=== PATIENT | male | born 1985 | race Caucasian/White ===

== ENCOUNTER → 2021-01-05 | Outpatient (CLI) | payer OTHER ==
--- NOTE | 2021-01-05 16:12 | XR ---
EXAMINATION TYPE: XR Hip Complete LT DATE OF EXAM: 01/05/2021 COMPARISON: NONE HISTORY: Pain TECHNIQUE: 2 views submitted FINDINGS: There is no evidence of erosive change or acute fracture. Mild concentric narrowing of the hip joint. There is mild hypertrophic change of the acetabulum. Calcifications in the pelvis may be vascular. IMPRESSION: 1. Hypertrophic change of the acetabulum could be associated with femoral acetabular impingement abdirahman elate clinically.
== END | disposition home or self-care (01) ==
LOC: RADXRMAIN 15:30
PROVIDERS: ATTEND Internal Medicine
DX: M89.8X5 Other specified disorders of bone, thigh (principal)
CPT/HCPCS: 73502

== ENCOUNTER 2023-06-16 10:40 | Emergency (ER) | payer OTHER ==
[2023-06-16 11:15] VITALS: RESP 18
--- NOTE | 2023-06-16 11:16 | ED ---
Fall HPI - General Chief Complaint: Fall Stated Complaint: Fall Time Seen by Provider: 06/16/23 10:42 Source: patient, RN notes reviewed, Caregiver Mode of arrival: ambulatory Limitations: physical limitation - History of Present Illness Initial Comments: This is a 38-year-old male who presents to the emergency department for a fall. Patient lives in a long-term and has Down syndrome, and history is somewhat limited. Staff at the home heard him fall, and he then hollered for help. He was unable to put pressure on his left foot afterwards and has been complaining of pain to that area since. When asked if anything else hurts, he just says "yes", and staff says he will just agree with whatever you say. However, the left foot/ankle was the only area he was noted to have difficulty with. He is not on any blood thinners. Given that they heard the fall and he screamed immediately afterwards, it was suspected that there was not any loss of co nsciousness. He also did not land in a manor where they were concerned that he may have hit his head. He did have Excedrin before arrival. MD Complaint: fall - Related Data Allergies Allergy/AdvReac Type Severity Reaction Status Date / Time dextromethorphan Allergy Rash/Hives Verified 06/16/23 11:13 [From Dimetapp Cold-Congestion] diphenhydramine Allergy Rash/Hives Verified 06/16/23 11:13 [From Dimetapp Cold-Congestion] guaifenesin Allergy Rash/Hives Verified 06/16/23 11:13 [From Dimetapp Cold-Congestion] phenylephrine Allergy Rash/Hives Verified 06/16/23 11:13 [From Dimetapp Cold-Congestion] pseudoephedrine Allergy Rash/Hives Verified 06/16/23 11:13 [From Dimetapp Cold-Congestion] Review of Systems ROS Statement: Those systems with pertinent positive or pertinent negative responses have been documented in the HPI. ROS Other: All systems not noted in ROS Statement are negative. Past Medical History Past Medical History: Unable to Obtain Past Surgical History: Unable to Obtain Smoking Status: Never smoker Past Alcohol Use History: None Reported Past Drug Use History: None Reported General Exam Limitations: physical limitation General appearance: alert, in no apparent distress Head exam: Present: atraumatic, normocephalic, normal inspection Eye exam: Present: normal appearance, PERRL, EOMI. Absent: scleral icterus, conjunctival injection, periorbital swelling Respiratory exam: Present: normal lung sounds bilaterally. Absent: respiratory distress, wheezes, rales, rhonchi, stridor Cardiovascular Exam: Present: regular rate, normal rhythm, normal heart sounds. Absent: systolic murmur, diastolic murmur, rubs, gallop, clicks Extremities exam: Present: other (Tenderness to palpation over the medial and lateral aspect of the left ankle with mild swelling. ROM limited by pain. 2+ DP and PT pulses.) Neurological exam: Present: alert, oriented X3, CN II-XII intact Psychiatric exam: Present: normal affect, normal mood Course Vital Signs 06/16/23 06/16/23 10:45 11:50 Temperature 98.1 F 98.0 F Pulse Rate 75 78 Respiratory 18 18 Rate Blood Pressure 138/82 134/78 O2 Sat by Pulse 96 100 Oximetry Medical Decision Making - Medical Decision Making This is a 38-year-old male who presents to the emergency department for left ankle pain. Was pt. sent in by a medical professional or institution? @ -No Did you speak to anyone other than the patient for history? @ -His caregivers provided the majority of the history. Did you review nursing and triage notes? @ -Yes, and I agree, it is accurate with regards to the patient's symptoms. Were old charts reviewed? @ -No Differential Diagnosis? @ -Differential Musculoskeletal: Muscular strain, contusion, ligament sprain, fracture, arthritis, septic arthritis, bursitis, cellulitis, muscle spasm, nerve compression, DVT, arterial occlusion, herpes zoster, electrolyte abnormality, tumor.... This is not meant to be in all inclusive list EKG interpreted by me (3pts min.)? @ -Not obtained X-rays interpreted by me (1pt min.)? @ -X-ray of the left foot and ankle obtained. My interpretation identifies no acute fractures. CT interpreted by me (1pt min.)? @ -Not obtained U/S interpreted by me (1pt. min.)? @ -Not obtained What testing was considered but not performed? (CT, X-rays, U/S, labs)? Why? @ -None What meds were considered but not given? Why? @ -None Did you discuss the management of the patient with other professionals? @ -No Did you reconcile home meds? @ -No Was smoking cessation discussed for >3mins.? @ -No Was critical care preformed (if so, how long)? @ -No Were there social determinants of health that impacted care today? How? (Homelessness, low income, unemployed, alcoholism, drug addiction, transpo rtation, low edu. Level, literacy, decrease access to med. care, [facility], rehab)? @ -No Was there de-escalation of care discussed even if they declined? (Discuss DNR or withdrawal of care, Hospice)? @ -No What co-morbidities impacted this encounter? (DM, HTN, Smoking, COPD, CAD, Cancer, CVA, Hep., AIDS, mental health diagnosis, sleep apnea, morbid obesity)? @ -Down syndrome Was patient admitted / discharged? @ -Discharged. X-ray of the left foot and ankle obtained revealing soft tissue swelling and no acute fractures. Advised that this is likely an ankle sprain. Ibuprofen administered for pain relief. He was given a Velcro stirrup splint and discharged home in stable condition. Discussed with the patient and his caregivers alternating with ibuprofen and Tylenol as needed for pain relief and applying ice for 15-20 minutes every 2-3 hours. Undiagnosed new problem with uncertain prognosis? @ -None Drug Therapy requiring intensive monitoring for toxicity (Heparin, Nitro, Insulin, Cardizem)? @ -None Were any procedures done? @ -None Diagnosis/symptom? @ -Fall, left ankle sprain Acute, or Chronic, or Acute on Chronic? @ -Acute Uncomplicated (without systemic symptoms) or Complicated (systemic symptoms)? @ -Uncomplicated Side effects of treatment? @ -None Exacerbation, Progression, or Severe Exacerbation] @ -Not applicable Poses a threat to life or bodily function? @ -This may limit his ability to ambulate for the mean time. Return precautions reviewed in depth, the patient is instructed to return to the emergency department with any new, worsening, or concerning symptoms. Patient verbalized understanding. This case was discussed in detail with the attending ED physician, Dr. Dash. Presentation, findings, and treatment plan discussed in detail as well. - Radiology Data Radiology results: report reviewed, image reviewed Disposition Clinical Impression: Fall, Left ankle sprain Disposition: HOME SELF-CARE Instructions (If sedation given, give patient instructions): Ankle Sprain (ED), Ankle Stirrup Splint (ED) Additional Instructions: Return to the emergency department with any new, worsening, or concerning symptoms. He can use the Velcro stirrup splint as needed. Alternate with ibuprofen and Tylenol as needed for pain relief. Apply ice for 15-20 minutes e very 2-3 hours for the first 2-3 days, followed by heat thereafterwards. Follow up with his primary care provider in 1-2 days. Is patient prescribed a controlled substance at d/c from ED?: No Referrals: Radha Diaz MD [STAFF PHYSICIAN] - 1-2 days Time of Disposition: 11:39
--- NOTE | 2023-06-16 11:32 | XR ---
EXAMINATION TYPE: XR ankle complete LT, XR foot complete LT DATE OF EXAM: 06/16/2023 11:21 AM CLINICAL INDICATION:Male, 38 years old with history of Injury; COMPARISON: None TECHNIQUE: XR ankle complete LT, XR foot complete LT; ankle is imaged in frontal, lateral and obliqu e projections. FINDINGS: There is no evidence of acute osseous pathology. The joint spaces are well-preserved without evidenc e of subluxation or dislocation. Kager's fat pad is intact. Mild soft tissue swelling around the ankl e. No radiopaque foreign bodies are identified. IMPRESSION: 1. No evidence of acute fracture. 2. Subcutaneous swelling around the ankle likely secondary to underlying soft tissue injury.
[2023-06-16] MEDS ORDERED: IBUPROFEN 800 MG TAB PO STA (11:38)
[2023-06-16 12:13] VITALS: BP 134/78; PULSE 78; TEMP 98
== END 2023-06-16 11:50 | disposition home or self-care (01) ==
LOC: EC 10:40
DX: S93.402A Sprain of unspecified ligament of left ankle, initial encounter (principal); Z88.8 Allergy status to other drugs, medicaments and biological substances; W01.0XXA Fall on same level from slipping, tripping and stumbling without subsequent striking against object, initial encounter
CPT/HCPCS: 73610; 73630; 99283; L4350

== ENCOUNTER 2024-11-25 09:17 | Emergency (ER) | payer OTHER ==
[2024-11-25] MEDS: SODIUM CHLORIDE 0.9% 1,000 ML IV STA (09:54)
[2024-11-25] MEDS: PANTOPRAZOLE 40 MG/10 ML VIAL IVP STA (09:54)
[2024-11-25] MEDS: ONDANSETRON 4 MG/2 ML VIAL IVP STA (09:54)
[2024-11-25 09:55] LABS: Basophils # (A) 0.05 10*3/uL (0.00-0.10); Basophils % (A) 0.5 %; Eosinophils # (A) 0.08 10*3/uL (0.04-0.35); Eosinophils % (A) 0.8 %; HCT 38.3 % (39.6-50.0); HGB 12.9 g/dL (13.0-17.0); Lymphocytes # (A) 3.51 10*3/uL (0.90-5.00); Lymphocytes % (A) 35.5 %; MCH 31.0 pg (27.0-32.0); MCHC 33.7 g/dL (32.0-37.0); MCV 92.1 fL (80.0-97.0); Monocytes # (A) 0.79 10*3/uL (0.20-1.00); Monocytes % (A) 8.0 %; Neutrophils # (A) 5.44 10*3/uL (1.80-7.70); Neutrophils % (A) 54.9 %; Platelet Count 214 10*3/uL (140-440); RBC 4.16 10*6/uL (4.40-5.60); RDW 15.0 % (11.5-14.5); WBC 9.90 10*3/uL (4.50-10.00)
[2024-11-25] MEDS: KETOROLAC 15 MG/ML 1 ML VIAL IVP STA (09:55)
[2024-11-25 10:10] LABS: INR 1.0 (<1.2); Partial Thromboplastin Time 24.2 sec (22.0-30.0); Prothrombin Time 11.0 sec (10.0-12.5)
[2024-11-25 10:13] LABS: ALT 62 U/L (4-49); AST 39 U/L (17-59); African American GFR (CKD) >90 (>60 ml/min/1.73 sqM); Albumin 3.8 g/dL (3.5-5.0); Alkaline Phosphatase 78 U/L (38-126); Anion Gap 11 mmol/L; Blood Urea Nitrogen 15 mg/dL (9-20); Calcium 9.3 mg/dL (8.4-10.2); Carbon Dioxide 25 mmol/L (22-30); Chloride 105 mmol/L (98-107); Glucose 110 mg/dL (74-99); Magnesium 1.8 mg/dL (1.6-2.3); Non-African American GFR(CKD) >90 (>60 ml/min/1.73 sqM); Potassium 4.4 mmol/L (3.5-5.1); Sodium 141 mmol/L (137-145); Total Protein 6.8 g/dL (6.3-8.2)
--- NOTE | 2024-11-25 10:25 | XR ---
EXAMINATION TYPE: XR chest 2V DATE OF EXAM: 11/25/2024 10:20 AM COMPARISON: Chest radiographs from 04/23/2022. CLINICAL INDICATION: Male, 39 years old with history of Chest Pain; TECHNIQUE: XR chest 2V Frontal and lateral views of the chest. FINDINGS: Lungs/Pleura: Low lung volumes are present. There is no evidence of pleural effusion, focal consolida tion, or pneumothorax. Pulmonary vascularity: Pulmonary vascular congestion. Heart/mediastinum: Cardiomediastinal silhouette is enlarged. Musculoskeletal: No acute osseous pathology. IMPRESSION: Low lung volumes with a generalized hazy appearance which could represent atelectasis versus pulmonar y edema correlate with serum BNP. [facility], , 11/25/2024 10:23 AM
--- NOTE | 2024-11-25 11:46 | ED ---
General Adult HPI - General Chief complaint: Chest Pain Stated complaint: chest pain/abn labs Time Seen by Provider: 11/25/24 09:38 Source: patient, family, RN notes reviewed, old records reviewed Mode of arrival: ambulatory Limitations: no limitations - History of Present Illness Initial comments: 39-year-old male who presents emergency department complaining of some nonspecific chest pain. He has a history of atrial septal defect status p ostclosure, hypertension, hyperlipidemia, diabetes, intellectual disability. Presents with his aunt over concern for chest pain that he is intermittently complained of for the last few days. Seems to resolve with antiacids. PCP sent him here for evaluation for cardiac evaluation considering as an he had atrial septal defect closure surgery. Patient currently is resting comfortably. He has some reproducible chest pain currently that comes and goes. Presents for further evaluation at this time. - Related Data Home Medications Medication Instructions Recorded Confirmed Acetaminophen Tab [Tylenol Tab] 500 mg PO BID 11/25/24 11/25/24 Amoxicillin 500 mg PO DIRECTED 11/25/24 11/25/24 Atorvastatin [Lipitor] 20 mg PO HS 11/25/24 11/25/24 Insulin Glargine,Hum.rec.anlog 40 units SQ BID 11/25/24 11/25/24 [Lantus Solostar Pen] Levothyroxine Sodium [Synthroid] 88 mcg PO DAILY 11/25/24 11/25/24 Semaglutide [Ozempic] 1 mg SQ TH@2100 11/25/24 11/25/24 metFORMIN HCL [metFORMIN HCL ER] 750 mg PO BID 11/25/24 11/25/24 Allergies Allergy/AdvReac Type Severity Reaction Status Date / Time dextromethorphan Allergy Rash/Hives Verified 11/25/24 10:18 [From Dimetapp Cold-Congestion] diphenhydramine Allergy Rash/Hives Verified 11/25/24 10:18 [From Dimetapp Cold-Congestion] guaifenesin Allergy Rash/Hives Verified 11/25/24 10:18 [From Dimetapp Cold-Congestion] phenylephrine Allergy Rash/Hives Verified 11/25/24 10:18 [From Dimetapp Cold-Congestion] pseudoephedrine Allergy Rash/Hives Verified 11/25/24 10:18 [From Dimetapp Cold-Congestion] Review of Systems ROS Statement: Those systems with pertinent positive or pertinent negative responses have been documented in the HPI. Review of Systems: CONST: Denies fever EYES: Denies blurry vision ENT: Denies nasal congestion C/V: Endorses reproducible chest wall pain. RESP: Denies shortness of breath GI: Denies abdominal pain : Denies dysuria SKIN: Denies rash. MSK: Denies joint pain. NEURO: Denies headache ROS Other: All systems not noted in ROS Statement are negative. Past Medical History Past Medical History: Diabetes Mellitus, Hyperlipidemia, Hypertension, Thyroid Disorder Past Surgical History: Unable to Obtain Additional Past Surgical History / Comment(s): av septal closure Smoking Status: Never smoker Past Alcohol Use History: None Reported Past Drug Use History: None Reported General Exam - General Exam Comments Initial Comments: General: Appears in no acute distress. HEAD: Normal with no signs of head trauma. EYES: PERRLA, EOMI, conjunctiva normal, no discharge. ENT: Hearing grossly intact, normal oropharynx. RESPIRATORY: Clear breath sounds bilaterally. No wheezes, rales, or rhonchi. C/V: Regular rate and rhythm. S1 and S2 auscultated, no edema, peripheral pulses 2+ and intact throughout ABD: Abd is soft, nontender, nondistended EXT: No obvious deformity. Chest wall reproducible on tenderness on palpation over the superior aspect of the sternum near the sternoclavicular joints. No obvious deformity. SKIN: No rashes or lesions observed on exposed skin. NEURO: Alert and orient x 4. Limitations: no limitations Course Vital Signs 11/25/24 11/25/24 11/25/24 09:19 10:36 11:52 Temperature 98 F 97.9 F Pulse Rate 68 56 L 57 L Respiratory 16 18 16 Rate Blood Pressure 128/73 113/59 117/55 O2 Sat by Pulse 93 L 99 98 Oximetry Medical Decision Making - Medical Decision Making Was pt. sent in by a medical professional or institution (, PA, PREMIUM NOTE INTEREST CALCULATOR CLERK, urgent care, hospital, or jail...) When possible be specific @ -Sent by PCP over concern for multiple days of nonspecific chest wall pain. Did you speak to anyone other than the patient for history (EMS, parent, family, police, friend...)? What history was obtained from this source @ -Spoke with patient's aunt who is the primary historian for the patient. Did you review nursing and triage notes (agree or disagree)? Why? @ -I reviewed and agree with nursing and triage notes Were old charts reviewed (outside hosp., previous admission, EMS record, old EKG, old radiological studies, urgent care reports/EKG's, jail records)? Report findings @ -No prior EKG for review. Differential Diagnosis (chest pain, altered mental status, abdominal pain women, abdominal pain men, vaginal bleeding, weakness, fever, dyspnea, syncope, headache, dizziness, GI bleed, back pain, seizure, CVA, palpatations, mental health, musculoskeletal)? @ -Differential Chest Pain: Stable Angina, Unstable Angina, STEMI, NSTEMI Aortic Dissection, Pneumothorax, Musculoskeletal, Esophageal Spasm GERD, Cholecystitis, Pancreatitis, Zoster, this is not meant to be an all-inclusive list. EKG interpreted by me (3pts min.). @ -As above X-rays interpreted by me (1pt min.). @ -Chest x-ray reveals no obvious acute cardiopulmonary process. CT interpreted by me (1pt min.). @ -None done U/S interpreted by me (1pt. min.). @ -None done What testing was considered but not performed or refused? (CT, X-rays, U/S, labs)? Why? @ -None What meds were considered but not given or refused? Why? @ -None Did you discuss the management of the patient with other professionals (professionals i.e. , PA, PREMIUM NOTE INTEREST CALCULATOR CLERK, lab, RT, psych nurse, social work professor, vehicle maintenance supervisor, teacher, special technical operations officer, case packer)? Give summary @ -No Was smoking cessation discussed for >3mins.? @ -No Was critical care preformed (if so, how long)? @ -No Were there social determinants of health that impacted care today? How? (Ho melessness, low income, unemployed, alcoholism, drug addiction, transportation, low edu. Level, literacy, decrease access to med. care, [facility], rehab)? @ -No Was there de-escalation of care discussed even if they declined (Discuss DNR or withdrawal of care, Hospice)? DNR status @ -No What co-morbidities impacted this encounter? (DM, HTN, Smoking, COPD, CAD, Cancer, CVA, ARF, Chemo, Hep., AIDS, mental health diagnosis, sleep apnea, morbid obesity)? @ -None Was patient admitted / discharged? Hospital course, mention meds given and route, prescriptions, significant lab abnormalities, going to OR and other pertinent info. @ -Based on patient's presentation physical exam, presents emergency department complaining of nonspecific chest pain. Vitals are within acceptable limits. Seems to be chest wall pain however due to the patient's intellectual disability we will obtain general cardiac workup. He is resting comfortably. Vitals are within acceptable limits. Patient was in agreement this plan. Patient given an acids, as well as Toradol. Patient also given 1 L fluid bolus. EKG showed no signs of acute ischemia. Nonspecific ST segment and T wave abnormalities present. Laboratory studies are all within acceptable limits including undetectable troponin. Chest x-ray unremarkable. I discussed results with patient and his aunt. Patient will be discharged home at this time. He is resting comfortably with no acute complaints. Symptoms have been ongoing for multiple days and we did discuss that if it was cardiac related we would likely find something in workup. They were in agreement with this assessment and will follow-up with PCP. Heart score is low at 2. I instructed the patient to follow up with their PCP in the next 1-3 days. I explained that the patient should return to the emergency department if they experience any worsening symptoms. Strict return precautions were discussed with the patient. The patient expressed understanding of these instructions. I a nswered all questions that the patient had. The patient was discharged home in good condition with their prescriptions and follow up information. Undiagnosed new problem with uncertain prognosis? @ -No Drug Therapy requiring intensive monitoring for toxicity (Heparin, Nitro, Insulin, Cardizem)? @ -No Were any procedures done? @ -No Diagnosis/symptom? @ -Chest wall pain, GERD Acute, or Chronic, or Acute on Chronic? @ -Acute Uncomplicated (without systemic symptoms) or Complicated (systemic symptoms)? @ -Uncomplicated Side effects of treatment? @ -No Exacerbation, Progression, or Severe Exacerbation? @ -No Poses a threat to life or bodily function? How? (Chest pain, [place], [place], pneumonia, PE, COPD, DKA, ARF, appy, cholecystitis, CVA, Diverticulitis, Homicidal, Suicidal, threat to staff... and all critical care pts) @ -Unlikely at this time - Lab Data Result diagrams: 11/25/24 09:41 11/25/24 09:41 Lab Results 11/25/24 11/25/24 11/25/24 Range/Units 09:41 09:41 09:41 WBC 9.90 (4.50-10.00) 10*3/uL RBC 4.16 L (4.40-5.60) 10*6/uL Hgb 12.9 L (13.0-17.0) g/dL Hct 38.3 L (39.6-50.0) % MCV 92.1 (80.0-97.0) fL MCH 31.0 (27.0-32.0) pg MCHC 33.7 (32.0-37.0) g/dL Plt Count 214 (140-440) 10*3/uL MPV 10.1 (9.5-12.2) fL Immature Gran % (Auto) 0.3 % Neutrophils % 54.9 % Lymphocytes % 35.5 % Monocytes % 8.0 % Eosinophils % 0.8 % Basophils % 0.5 % Immature Gran # 0.03 (0.00-0.04) 10*3/uL Neutrophils # 5.44 (1.80-7.70) 10*3/uL Lymphocytes # 3.51 (0.90-5.00) 10*3/uL Monocytes # 0.79 (0.20-1.00) 10*3/uL Eosinophils # 0.08 (0.04-0.35) 10*3/uL Basophils # 0.05 (0.00-0.10) 10*3/uL PT 11.0 (10.0-12.5) sec INR 1.0 (<1.2) APTT 24.2 (22.0-30.0) sec Sodium 141 (137-145) mmol/L Potassium 4.4 (3.5-5.1) mmol/L Chloride 105 (98-107) mmol/L Carbon Dioxide 25 (22-30) mmol/L Anion Gap 11 mmol/L BUN 15 (9-20) mg/dL Creatinine 0.82 (0.66-1.25) mg/dL Est GFR (CKD-EPI)AfAm >90 (>60 ml/min/1.73 sqM) Est GFR (CKD-EPI)NonAf >90 (>60 ml/min/1.73 sqM) Glucose 110 H (74-99) mg/dL Calcium 9.3 (8.4-10.2) mg/dL Magnesium 1.8 (1.6-2.3) mg/dL Total Bilirubin 0.4 (0.2-1.3) mg/dL AST 39 (17-59) U/L ALT 62 H (4-49) U/L Alkaline Phosphatase 78 (38-126) U/L Troponin I (0.000-0.034) ng/mL Total Protein 6.8 (6.3-8.2) g/dL Albumin 3.8 (3.5-5.0) g/dL 11/25/24 Range/Units 09:41 WBC (4.50-10.00) 10*3/uL RBC (4.40-5.60) 10*6/uL Hgb (13.0-17.0) g/dL Hct (39.6-50.0) % MCV (80.0-97.0) fL MCH (27.0-32.0) pg MCHC (32.0-37.0) g/dL Plt Count (140-440) 10*3/uL MPV (9.5-12.2) fL Immature Gran % (Auto) % Neutrophils % % Lymphocytes % % Monocytes % % Eosinophils % % Basophils % % Immature Gran # (0.00-0.04) 10*3/uL Neutrophils # (1.80-7.70) 10*3/uL Lymphocytes # (0.90-5.00) 10*3/uL Monocytes # (0.20-1.00) 10*3/uL Eosinophils # (0.04-0.35) 10*3/uL Basophils # (0.00-0.10) 10*3/uL PT (10.0-12.5) sec INR (<1.2) APTT (22.0-30.0) sec Sodium (137-145) mmol/L Potassium (3.5-5.1) mmol/L Chloride (98-107) mmol/L Carbon Dioxide (22-30) mmol/L Anion Gap mmol/L BUN (9-20) mg/dL Creatinine (0.66-1.25) mg/dL Est GFR (CKD-EPI)AfAm (>60 ml/min/1.73 sqM) Est GFR (CKD-EPI)NonAf (>60 ml/min/1.73 sqM) Glucose (74-99) mg/dL Calcium (8.4-10.2) mg/dL Magnesium (1.6-2.3) mg/dL Total Bilirubin (0.2-1.3) mg/dL AST (17-59) U/L ALT (4-49) U/L Alkaline Phosphatase (38-126) U/L Troponin I <0.012 (0.000-0.034) ng/mL Total Protein (6.3-8.2) g/dL Albumin (3.5-5.0) g/dL - EKG Data -: EKG Interpreted by Me EKG Comments: 12-lead Electrocardiogram Interpretation Note EKG was reviewed and interpreted by myself. 12-lead ECG performed at 0941 is interpreted by me as revealing sinus bradycardia at a rate of 59 beats per minute. Foley is normal. CO interval is 110 ms, QRS durations 105 ms, QTc is [address] segment and T wave abnormalities present.. There were no ST or T wave abnormalities to suggest myocardial ischemia or injury. R wave progression across the precordium was satisfactory. By my interpretation this EKG is non-diagnostic for acute ischemia. Disposition Clinical Impression: Chest wall pain, GERD (gastroesophageal reflux disease) Disposition: HOME SELF-CARE Condition: Good Instructions (If sedation given, give patient instructions): Chest Wall Pain (ED) Is patient prescribed a controlled substance at d/c from ED?: No Referrals: Carolyn Boyle MD [Primary Care Provider] - 1-2 days Time of Disposition: 11:45
[2024-11-25 11:53] VITALS: BP 117/55; PULSE 57; RESP 16; TEMP 97.9
== END 2024-11-25 11:53 | disposition home or self-care (01) ==
LOC: EC 09:17
DX: K21.9 Gastro-esophageal reflux disease without esophagitis (principal); Z88.8 Allergy status to other drugs, medicaments and biological substances
CPT/HCPCS: 36415; 93005; 80053; 83735; 84484; 85025; 85610; 85730; 71046; 99285; 96374; 96375 ×2; 96361; J2405; J1885; J2470